=== PATIENT | male | born 1995 | race Caucasian/White ===

== ENCOUNTER 2016-10-19 23:06 | Emergency (ER) | payer BC | END 2016-10-19 23:35 | disposition home or self-care (01) | LOC: MADERS 23:06 | DX: S61.411A Laceration without foreign body of right hand, initial encounter (principal); F17.220 Nicotine dependence, chewing tobacco, uncomplicated; W25.XXXA Contact with sharp glass, initial encounter | CPT/HCPCS: 99282 ==